=== PATIENT | female | born 2000 | race Caucasian/White ===

== ENCOUNTER 2018-04-29 16:26 | Emergency (ER) | payer OTHER ==
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
[2018-04-29] MEDS ORDERED: HYDROcodone/Acetaminophen 5/325 mg Tablet ONE (17:45)
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
== END 2018-04-29 18:13 | disposition home or self-care (01) ==
LOC: ERS 16:26
DX: S12.600A Unspecified displaced fracture of seventh cervical vertebra, initial encounter for closed fracture (principal); S42.022A Displaced fracture of shaft of left clavicle, initial encounter for closed fracture; S40.812A Abrasion of left upper arm, initial encounter; V23.4XXA Motorcycle driver injured in collision with car, pick-up truck or van in traffic accident, initial encounter; Y92.481 Parking lot as the place of occurrence of the external cause
CPT/HCPCS: 70450; 71045; 72125; G0390